=== PATIENT | female | born 1980 | race Two or more races ===

== ENCOUNTER 2019-02-09 01:21 | Emergency (ER) | payer MEDICAID | END 2019-02-09 01:40 | disposition left against medical advice (07) | LOC: ER 01:25 | DX: T14.8XXA Other injury of unspecified body region, initial encounter (principal); Z53.21 Procedure and treatment not carried out due to patient leaving prior to being seen by health care provider; W57.XXXA Bitten or stung by nonvenomous insect and other nonvenomous arthropods, initial encounter; Y93.89 Activity, other specified; Y99.8 Other external cause status; Y92.89 Other specified places as the place of occurrence of the external cause ==